=== PATIENT | male | born 2000 | race Hispanic/Latino ===

== ENCOUNTER 2018-12-03 17:39 | Emergency (ER) | payer SELFPAY ==
[2018-12-03] MEDS ORDERED: Dexamethasone 10 MG/ML VIAL ONE (18:25)
--- NOTE | 2018-12-03 20:00 | RAD ---
TWO VIEW CHEST: 12/03/18 INDICATION: Short of breath. FINDINGS: There is no consolidation, effusion or pneumothorax. The cardiac silhouette is normal in size. [place] us structures are intact. IMPRESSION: No focal consolidation. POS: SUSHIL
== END 2018-12-03 19:16 | disposition home or self-care (01) ==
LOC: ERS 17:39
DX: J20.9 Acute bronchitis, unspecified (principal)
CPT/HCPCS: 71046; 94640; J1100; J7620

== ENCOUNTER 2024-04-27 20:46 | Emergency (ER) | payer SELFPAY | END 2024-04-28 01:54 | disposition home or self-care (01) | LOC: ERS 20:46 | DX: S06.9X9A Unspecified intracranial injury with loss of consciousness of unspecified duration, initial encounter (principal); Z55.6 Problems related to health literacy; W01.10XA Fall on same level from slipping, tripping and stumbling with subsequent striking against unspecified object, initial encounter | CPT/HCPCS: 70450; 72125 ==